=== PATIENT | female | born 1950 | race Caucasian/White ===

== ENCOUNTER → 2016-09-21 | Outpatient (CLI) | payer OTHER | LOC: FCPNEURO 21:30 | PROVIDERS: ATTEND Psychiatry & Neurology Sleep Medicine | DX: G47.33 Obstructive sleep apnea (adult) (pediatric) (principal) ==

== ENCOUNTER 2017-03-04 11:31 | Inpatient (IN) | payer OTHER ==
[2017-03-04] MEDS ORDERED: NS 1,000 ML IV ONE ×3 (11:42→13:49)
--- NOTE | 2017-03-04 11:42 | CPEKG ---
Heart Rate: 115 RR Interval: 522 P-R Interval: 160 QRSD Interval: 82 QT Interval: 348 QTC Interval: 482 P [place]: 52 QRS [place]: 15 T Wave [place]: -58 EKG Severity - ABNORMAL ECG - EKG Impression: SINUS TACHYCARDIA EKG Impression: ABNRM R PROG, CONSIDER ASMI OR LEAD PLACEMENT EKG Impression: BORDERLINE T ABNORMALITIES, INFERIOR LEADS Electronically Signed By: Jareth Alfred 04-Mar-2017 14:53:17
[2017-03-04 11:57] LABS: % IMMATURE GRANULYOCYTES 0.3 % (0.0-1.1); ABSOLUTE IMMATURE GRANULOCYTES 0.03 10^3/uL (0.00-0.10); ADD DIFF? NO; ADD MORPH? NO; ADD SCAN? NO; ATYPICAL LYMPHOCYTE FLAG 70 (0-99); FRAGMENT RBC FLAG 0 (0-99); HEMATOCRIT 51.4 % (38.0-47.0); HEMOGLOBIN 18.3 g/dL (12.6-16.3); LEFT SHIFT FLG 0 (0-99); LIPEMIA HEMOLYSIS FLAG 90 (0-99); MEAN CELL HEMOGLOBIN 30.9 pg (27.9-34.1); MEAN CELL HEMOGLOBIN CONCENTR. 35.6 g/dL (32.4-36.7); MEAN CELL VOLUME 86.8 fL (81.5-99.8); MEAN PLATELET VOLUME 10.5 fL (8.7-11.7); PLATELET CLUMPS FLAG 0 (0-99); PLATELET COUNT 252 10^3/uL (150-400); RED BLOOD CELL COUNT 5.92 10^6/uL (4.18-5.33); RED CELL DISTRIBUTION WIDTH 12.7 % (11.5-15.2)
--- NOTE | 2017-03-04 12:08 | EDPHY ---
H & P Stated Complaint: sob that started today, 4 days tx for pneumonia, denies pain Time Seen by Provider: 03/04/17 11:33 HPI/ROS: This patient presents with dyspnea. She explains that she has been fatigued recently and happened to have wellness check with her primary care physician- Dr. Leann Long 5 days ago, presenting with a low-grade fever at that time and found to have pneumonia in the right lower lung field clinically. The patient declined a chest x-ray at that time and she was started on Levaquin which she has been compliant with over the past 5 days. She reports decreased appetite and decreased p. o. intake as a result of that but her fever has resolved. This morning she has significant dyspnea and anxiety. She also complains of significant fatigue and lightheadedness. She is accompanied by her spouse who brought her in by private vehicle. ROS: Constitutional: Fatigue as noted above. No fevers over the past few days. HEENT: No URI symptoms or other complaints. Pulmonary: Dyspnea as above. She denies any pleuritic pain. No hemoptysis. Cardiovascular: She denies lightheadedness. She has not noticed palpitations. No chest pain. She has no leg swelling or pain. GI: No abdominal pain. No vomiting. She has had loose stools recently. : The 1st day of taking Levaquin-8 3 she noticed some burning dysuria that resolved thereafter. No dysuria, frequency or urgency. Integumentary: No skin rash Neuro: No focal numbness tingling or weakness. No headache. Complete review of symptoms is otherwise negative Source: Patient Exam Limitations: No limitations - Medical/Surgical History PMH: Patient had a as cardiac stress test that was negative with Dr. Rodriguez 7 years ago Hx Asthma: No Hx Chronic Respiratory Disease: No Hx Diabetes: No Hx Cardiac Disease: Yes Hx Renal Disease: No Hx Cirrhosis: No Hx Alcoholism: No Hx HIV/AIDS: No Hx Splenectomy or Spleen Trauma: No Other PMH: hypothyroid, HTN - Family History Significant Family History: No pertinent family hx, Heart disease (Father with an VA at age 55) - Social History Smoking Status: Never smoked Alcohol Use: Rarely Drug Use: None - Physical Exam Exam: General Appearance: Alert, no distress. Eyes: Pupils equal and round no pallor or injection. ENT, Mouth: Mucous membranes moist. Respiratory: There are no retractions, lungs are clear to auscultation. Patient has clear tachypnea. No rales are appreciated at this time. Cardiovascular: Tachycardia with no murmur gallop or rub. No calf swelling or tenderness. Gastrointestinal: Abdomen is soft and nontender, no masses, bowel sounds normal. Neurological: GCS 15 with no focal deficits. Skin: Warm and dry, no rashes. Musculoskeletal: Neck is supple nontender. Extremities are symmetrical, full range of motion. Psychiatric: Mood affect are notable for anxiety. Otherwise normal DIFFERENTIAL DIAGNOSIS: After history and physical exam differential diagnosis was considered for dehydration, anxiety, ongoing pneumonia, sepsis, PE, VA infectious diarrhea Constitutional: Initial Vital Signs Temperature (C) 36.7 C 03/04/17 11:36 Heart Rate 135 H 03/04/17 11:36 Respiratory Rate 26 H 03/04/17 11:36 Blood Pressure 103/68 03/04/17 11:36 O2 Sat (%) 99 03/04/17 11:36 O2 Delivery Mode Room Air Allergies/Adverse Reactions: Opioids - Morphine Analogues Allergy (Intermediate, Verified 03/05/17 10:10) Vomiting Home Medications: Medication Instructions Recorded LEVOTHYROXINE SODIUM [Synthroid] 75 mcg PO DAILY 04/07/11 Alendronate Sodium [Fosamax 70 MG 70 mg PO Q7D 03/04/17 (*)] Cetirizine HCl/Pseudoephedrine 1 each PO HS PRN 03/04/17 [Zyrtec-D Tablet] Diclofenac Sodium 1% [Voltaren Gel 1 nuria TP DAILY PRN 03/04/17 (*)] Ibuprofen/Diphenhydramine Cit 1 tab PO HS PRN 03/04/17 [Advil Pm Caplet] Lisinopril/Hydrochlorothiazide 1 each PO DAILY 03/04/17 [Zestoretic 20-25 mg Tablet] Pantoprazole Sodium [Protonix 40mg 40 mg PO DAILY 03/04/17 (*)] levOFLOXACIN [Levofloxacin] 500 mg PO DAILY 03/04/17 Medical Decision Making - Diagnostics EKG Interpretation: 12 lead EKG indication shortness of breath rule out coronary syndrome Performed at 11:40 a.m. sinus tachycardia 115 Intervals: P R of 160, QTC of 42, QTC of 348, QRS of 82 [place]: P of 52, QRS of 15, T of-[address] elevation overall assessment sinus tachycardia borderline T- wave abnormality inferiorly appears consistent with artifact by my interpretation. Repeat EKG performed at 2:58 p.m. indication rule out interval change from 1st EKG Sinus rhythm at 79 Intervals: Normal throughout the exception of the QTc of 482 [place]: Normal ST segments: Flat Ts anteriorly although probably not remarkably different from initial EKG by my interpretation-no significant interval change Overall assessment sinus rhythm borderline T-wave abnormalities ED Course/Re-evaluation: IV normal saline bolus, blood cultures, lactate and other lab sent I reviewed the patient's visit with Dr. Leann Long on 02/28/[address] with temperature at that time of 37.5 (other V.S. normal) and rales at the right base on exam, started on Levaquin 500 mg a day for clinical diagnosis of community-acquired pneumonia. This patient has a positive lactate and renal insufficiency and workup as well as leukocytosis. 2 L normal saline bolus still with positive orthostatic changes with increase in her pulse of more than 20 when she stands up and agree center applied pressure of 15 points to systolic of low 90s when she stands up. 3rd L saline started I spoke with Dr. Abraham-hospitalist for plan of admission for further workup and treatment. Discussion: Patient clinical diagnosis of pneumonia and may have radiographic clearance but it is unusual that she be worsening with no radiographic findings of pneumonia. She has at this point SIRS (initial RR >20, pulse >90) along with renal insufficiency with out of clear etiology for her symptoms. She does have loose stools but that started after the Levaquin I suspect a simple antibiotic related diarrhea. She was unable to provide a stool sample while here. Her urine is clean. The differential diagnosis includes PE but with a negative D-dimer, lack of risk factors and lack of clinical findings I do not think that she has a PE. A review of her repeat EKG reveals poor R-wave progression anteriorly and borderline flat T-waves inferiorly anteriorly. I do not think she is having active ischemia, but the differential diagnosis does include potential cardiac cause of symptoms She is treated with aspirin 324. Counseled her regarding this. At 3:00 p.m. bed is pending at [facility]. Patient feels improved while supine but still feels lightheaded while standing. She is on her 3rd L normal saline I counseled the patient regarding the reasons for admission-SIRS with unclear source of infection, renal insufficiency, dehydration - Data Points Laboratory Results: Laboratory Results 03/04/17 11:45 03/04/17 14:00 Medications Given: Acetaminophen (Tylenol) 650 mg PO Q4HRS PRN PRN Reason: Pain, Mild/Fever, Can Take PO Stop: 08/31/17 16:55 Last Admin: 03/05/17 08:56 Dose: 650 mg Benzonatate (Tessalon Pearles) 200 mg PO TID PRN PRN Reason: Cough, Mild Stop: 08/31/17 16:58 Last Admin: 03/05/17 06:22 Dose: 200 mg Cetirizine HCl (Zyrtec) 10 mg PO DAILY MERRILL Stop: 09/01/17 09:59 Last Admin: 03/05/17 10:53 Dose: 10 mg Enoxaparin Sodium (Lovenox) 40 mg SC DAILY MERRILL Stop: 09/01/17 08:59 Last Admin: 03/05/17 08:30 Dose: 40 mg Guaifenesin (Mucinex) 1,200 mg PO BID MERRILL Stop: 09/01/17 09:59 Last Admin: 03/05/17 10:52 Dose: 1,200 mg Sodium Chloride (Ns) 1,000 mls @ 150 mls/hr IV CONT MERRILL Stop: 09/01/17 09:59 Last Admin: 03/05/17 10:52 Dose: 1,000 mls Discontinued Medications Aspirin (Aspirin) 324 mg PO EDNOW ONE Stop: 03/04/17 15:08 Last Admin: 03/04/17 15:13 Dose: 324 mg Sodium Chloride (Ns) 1,000 mls @ 0 mls/hr IV ONCE ONE; Wide Open PRN Reason: Protocol Stop: 03/04/17 11:43 Last Admin: 03/04/17 11:45 Dose: 1,000 mls Ceftriaxone Sodium 1 gm/ (Sodium Chloride) 100 mls @ 200 mls/hr IV EDNOW ONE PRN Reason: Protocol Stop: 03/04/17 12:44 Last Admin: 03/04/17 12:31 Dose: 100 mls Sodium Chloride (Ns) 1,000 mls @ 0 mls/hr IV EDNOW ONE; Wide Open PRN Reason: Protocol Stop: 03/04/17 12:25 Last Admin: 03/04/17 12:32 Dose: 1,000 mls Sodium Chloride (Ns) 1,000 mls @ 0 mls/hr IV EDNOW ONE; Wide Open PRN Reason: Protocol Stop: 03/04/17 13:50 Last Admin: 03/04/17 14:02 Dose: 1,000 mls Sodium Chloride (Ns) 1,000 mls @ 150 mls/hr IV CONT MERRILL Stop: 08/31/17 16:59 Last Admin: 03/04/17 17:31 Dose: 1,000 mls Departure - Departure Disposition: [facility] Inpatient Acute Clinical Impression: SIRS (systemic inflammatory response syndrome), Renal insufficiency, Dehydration Condition: Fair
[2017-03-04 12:11] LABS: ANION GAP 17 mEq/L (8-16); CALCIUM 9.7 mg/dL (8.5-10.4); CARBON DIOXIDE 20 mEq/l (22-31); CHLORIDE 101 mEq/L (97-110); CREATININE 1.6 mg/dL (0.6-1.0); GLOMERULAR FILTRATION RATE 32; GLUCOSE 85 mg/dL (70-100); POTASSIUM 3.6 mEq/L (3.5-5.2); SODIUM 138 mEq/L (134-144)
[2017-03-04 12:24] LABS: TROPONIN I < 0.012 ng/mL (0-0.034)
[2017-03-04 12:35] LABS: COLOR YELLOW; LEUKOCYTE ESTERASE,URINE NEGATIVE (NEGATIVE); NITRITE,URINE NEGATIVE (NEGATIVE)
[2017-03-04 14:25] LABS: CREATININE 1.4 mg/dL (0.6-1.0); POTASSIUM 3.8 mEq/L (3.5-5.2)
--- NOTE | 2017-03-04 14:59 | CPEKG ---
Heart Rate: 79 RR Interval: 759 P-R Interval: 200 QRSD Interval: 90 QT Interval: 440 QTC Interval: 505 P [place]: 20 QRS [place]: -5 T Wave [place]: 7 EKG Severity - ABNORMAL ECG - EKG Impression: SINUS RHYTHM EKG Impression: BORDERLINE R WAVE PROGRESSION, ANTERIOR LEADS EKG Impression: BORDERLINE T ABNORMALITIES, ANTERIOR LEADS EKG Impression: BORDERLINE PROLONGED QT INTERVAL Electronically Signed By: Whitney Joshua 05-Mar-2017 13:15:46
[2017-03-04] MEDS ORDERED: ASPIRIN 81 MG CHEWABLE TAB PO ONE (15:07)
[2017-03-04] MEDS ORDERED: ONDANSETRON DISINTEGRATING 4 MG TAB PO PRN (16:56)
[2017-03-04] MEDS ORDERED: ONDANSETRON 4 MG/2 ML VIAL IVP PRN (16:56)
[2017-03-04] MEDS ORDERED: NS 1,000 ML IV SCH (17:00)
--- NOTE | 2017-03-04 17:03 | PDGENHP ---
History and Physical History and Physical: CC: Fever cough weakness short of breath HISTORY: This patient initially had onset of fever symptoms with myalgias 8 days ago. The symptoms persisted and she developed a cough. She saw her primary care physician around for 5 days ago and was noted to have some rales on lung exam. She was started at that time on Levaquin continues taking Levaquin at this time. The patient incentive getting better has felt worse with persistent cough , fever symptoms, and has become short of breath and feels very weak. For these reasons she presented to the urgent care today is transferred here now for further evaluation and care. She was started on Rocephin in the urgent care today. The patient also does note that starting last night she has had some left lower quadrant abdominal pain without nausea vomiting or change in bowel function. She has had screening colonoscopies but it is unaware of whether not she has diverticulosis noted. Last colonoscopy 2 years ago. She denies any recent travel, and denies any pleuritic pain or other chest pains, any leg swelling or pain. ROS: A comprehensive 10 system review revealed no other significant findings PAST MEDICAL HISTORY: Breast cancer 11 years ago on the right with lumpectomy radiation and chemotherapy and no recurrence Ovarian cancer 34 years ago treated with surgical resection, no other treatments , no recurrence Melanoma Hypertension FAMILY MEDICAL HISTORY: No family history of pulmonary diseases or immune diseases SOCIAL HISTORY: She feels under great stress at this time issues trying to move her mother into an assisted living and is not feeling well enough to get her moved in MEDICATIONS: The patients list has been reconciled by our clinical pharmacist in the EMR. I have reviewed the list and ordered appropriate medicines. PHYSICAL EXAMINATION: Vital Signs: Initially in the urgent care today she was hypotensive and tachycardic with blood pressure in the 130s and systolic blood pressures reported to me as in the 90s at times. Her vital signs did improve with fluid but she remains tachycardic at a pulse of 106 at this time with normal blood pressure. Her respiratory rate has been high but her temperature so far normal today Permanent Mold Supervisor: Was reported to me is sinus at the urgent care Examination: General: alert, oriented, good mentation, mildly anxious Skin: warm, dry, good color, no rash HEENT: normal Neck: no mass or jvd Resps: Rapid and mildly labored on oxygen Lungs: clear breath sounds without any rales or wheeze or rhonchi Heart: regular, no murmur Abdomen: soft, some left lower quadrant tenderness with no rebound or guarding or palpable abnormality and no hernia, nontender, +BS, no mass Upper Extremities: normal Lower Extremities: no edema, warm No Bleeding or bruising Neurologic: normal speech/language, normal tripper, no focal weakness IV site: looks normal LABORATORY DATA: White cell count is elevated at 10,000 and hemoglobin elevated at 18 Lactic acid 3.4 from a venous draw, accompanied with a slightly low CO2 at 20 and anion gap at 17 Her BUN and creatinine are elevated with creatinine at 1.6 which is new for her RADIOLOGY STUDIES: Chest x-rays done at the other facility and I reviewed the images, my interpretation: Normal chest x-ray with no evidence of infiltrate, effusion, heart failure or vascular abnormalities 12 LEAD EKG: My reading of the tracing is a normal 12 lead EKG ASSESSMENT: -SUSPECT SEVERE SEPSIS WITH ORGAN FAILURE -COUGH SHORTNESS OF BREATH AND FEVER BUT NORMAL LUNG EXAM AND CHEST X-RAY, UNCERTAIN ETIOLOGY -LEFT LOWER QUADRANT PAIN, QUESTION IF SHE MIGHT ALSO HAVE SOME DIVERTICULITIS -ACUTE RENAL FAILURE DUE TO ABOVE Is unclear whether her respiratory illness is a viral illness that is not getting better with antibiotic for that reason, or whether she might even have pulmonary embolus. At this point will need a chest CT to further assess what is going on there, along with a respiratory viral pathogen panel and a procalcitonin. If we do not find anything definitive going on with the respiratory system or if her abdominal symptoms are getting worse or her exam worse she will need abdominal CT as well. PLANS: -at a inpatient admission hospital -the cultures have been obtained at the urgent care -will get a CT scan of chest -continue fluid resuscitation at this time -procalcitonin, respiratory pathogen panel -will decide on whether to get a CT abdomen after obtaining results of the above studies I have reviewed the patient's case in detail with Dr. Jareth Alfred
[2017-03-04] MEDS ORDERED: IOPAMIDOL (ISOVUE 370) 100 ML BTL IV ONE (17:04)
[2017-03-05 05:05] LABS: % IMMATURE GRANULYOCYTES 0.3 % (0.0-1.1); ABSOLUTE IMMATURE GRANULOCYTES 0.02 10^3/uL (0.00-0.10); ADD DIFF? NO; ADD MORPH? NO; ADD SCAN? NO; ATYPICAL LYMPHOCYTE FLAG 60 (0-99); FRAGMENT RBC FLAG 0 (0-99); HEMATOCRIT 43.4 % (38.0-47.0); HEMOGLOBIN 14.9 g/dL (12.6-16.3); LEFT SHIFT FLG 0 (0-99); LIPEMIA HEMOLYSIS FLAG 90 (0-99); MEAN CELL HEMOGLOBIN 31.5 pg (27.9-34.1); MEAN CELL HEMOGLOBIN CONCENTR. 34.3 g/dL (32.4-36.7); MEAN CELL VOLUME 91.8 fL (81.5-99.8); MEAN PLATELET VOLUME 10.6 fL (8.7-11.7); PLATELET CLUMPS FLAG 0 (0-99); PLATELET COUNT 179 10^3/uL (150-400); RED BLOOD CELL COUNT 4.73 10^6/uL (4.18-5.33); RED CELL DISTRIBUTION WIDTH 12.8 % (11.5-15.2)
[2017-03-05 05:28] LABS: ALANINE AMINOTRANSFERASE 28 IU/L (9-52); ALBUMIN 2.6 g/dL (3.5-5.0); ALKALINE PHOSPHATASE 54 IU/L (38-126); ANION GAP 8 mEq/L (8-16); ASPARTATE AMINOTRANSFERASE 18 IU/L (14-46); BILIRUBIN,TOTAL 0.8 mg/dL (0.1-1.4); CALCIUM 7.9 mg/dL (8.5-10.4); CARBON DIOXIDE 19 mEq/l (22-31); CHLORIDE 112 mEq/L (97-110); CREATININE 1.1 mg/dL (0.6-1.0); GLOMERULAR FILTRATION RATE 49; GLUCOSE 82 mg/dL (70-100); POTASSIUM 3.9 mEq/L (3.5-5.2); SODIUM 139 mEq/L (134-144); TOTAL PROTEIN 5.2 g/dL (6.3-8.2)
[2017-03-05] MEDS: BENZONATATE 100 MG CAP PO PRN ×3 (06:22→21:37)
[2017-03-05] MEDS: ENOXAPARIN 40 MG/0.4 ML SYR SC SCH (08:30)
[2017-03-05] MEDS: ACETAMINOPHEN 325 MG TAB PO PRN ×2 (08:56→19:22)
[2017-03-05] MEDS ORDERED: guaiFENesin/CODEINE PHOS 10 ML UDCUP PO PRN (09:48)
[2017-03-05] MEDS ORDERED: FLUTICASONE NASAL 120 SPRAYS/16 GM MDI EACHNARE PRN (09:49)
[2017-03-05] MEDS ORDERED: NS 1,000 ML IV SCH (10:00)
[2017-03-05] MEDS: guaiFENesin 600 MG TAB.ER PO SCH ×2 (10:52→19:22)
[2017-03-05] MEDS: CETIRIZINE 10 MG TAB PO SCH (10:53)
[2017-03-05] MEDS ORDERED: CETIRIZINE HCL PO PRN ×2 (14:41→14:55)
[2017-03-05] MEDS ORDERED: PSEUDOEPHEDRINE PO PRN ×2 (14:41→14:55)
[2017-03-05] MEDS ORDERED: DICLOFENAC SODIUM 1% 100 GM GEL TP PRN ×2 (14:41→14:54)
[2017-03-05] MEDS ORDERED: IBUPROFEN PO PRN ×2 (14:41→14:55)
[2017-03-05] MEDS ORDERED: DIPHENHYDRAMINE CIT PO PRN ×2 (14:41→14:55)
--- NOTE | 2017-03-05 14:48 | HOSPPROG ---
Hospitalist Progress Note Assessment/Plan: assessment: 66-year-old female presents with severe sepsis in the setting of parainfluenza virus Plan: 1. Severe sepsis. present on admission, evidenced by end-organ failure in the setting of viral infection, including acute kidney injury and lactic acidosis, meeting all ICDS-2 criteria -CT angiogram demonstrates no evidence of pulmonary embolism, no evidence of pneumonia -EKG demonstrates normal sinus mechanism with Q-wave in lead 3 and AVF, no chest pain, personally interpreted -continue on IV fluids -continue monitoring CBC 2. Parainfluenza infection. Positive on respiratory viral panel, resulting in her multi-system symptoms -supportive care with IV fluids, antihistamine, mucolytic, pain medications, antiemetics -patient's abdominal discomfort is most likely secondary to bowel irritation from her systemic virus, but if she is manifesting worsening or clinical change , will get abdominal CT scan -counseled patient regarding potential for spread, particularly to her 91-year- old mother 3. acute kidney injury. Secondary to autonomic dysregulation in the setting of infection, as well as hypovolemia, continue IV fluids, continue monitor urine output and monitor serum creatinine level -positive orthostatics, patient currently asymptomatic, repeat if patient manifesting symptoms 4. Metabolic acidosis. Acute, secondary to lactic acid, secondary to severe sepsis, continue IV fluids 5. hypothyroidism. Continue Synthroid, TSH somewhat under suppressed, will discuss with patient 6. diarrhea. Acute, new problem this provider, further workup is indicated. Potentially antibiotic associated diarrhea, as the patient has been on 5 days of Levaquin and also received ceftriaxone in the emergency department, currently off all antibiotics -given her risk for C diff, send PCR -monitor stool output Diet. Regular diet as tolerates Prophylaxis. High risk patient, Lovenox 40 Code. Full Disposition. Anticipated discharge is 03/06/2017, pending clinical improvement in condition as outlined above. Subjective: Patient reports she has significant sinus congestion, no lightheadedness upon standing, cough continues to be particularly troublesome, having diarrhea today Objective: Vital Signs Temp Pulse Resp BP Pulse Ox 36.7 C 98 20 129/66 H 96 03/05/17 11:20 03/05/17 11:20 03/05/17 11:20 03/05/17 11:20 03/05/17 11:20 Microbiology 03/04/17 17:33 Respiratory Panel (PCR) - Final Nasal, Sinus - Anaerobic Tube/Swab Parainfluenza Virus Type 1 Laboratory Results 03/05/17 04:22 03/05/17 04:22 03/04/17 03/05/17 03/06/17 05:59 05:59 05:59 Intake Total 740 Balance 740 - Pending Discharge Pending Discharge Within 24 Hours: Yes Pending Discharge Date: 03/06/17 Pending Discharge Time: 11:00 - Physical Exam Constitutional: no apparent distress, not in pain, uncomfortable, other ( ill- appearing) Cardiovascular: tachycardia, No systolic murmur, No irregularly irregular, No edema Respiratory: no rales or rhonchi, clear to auscultation, other ( cough triggered by deep inspiration), No expiratory wheeze Gastrointestinal: normoactive bowel sounds, no palpable masses, tenderness ( focal in the left suprapubic area), No distension Skin: no rashes or abrasions, no fluctuance, no induration Neurologic: AAOx3, sensation intact bilaterally Psychiatric: interacting appropriately, not anxious, not encephalopathic, thought process linear ICD10 Worksheet Patient Problems: Problems Problem Status Onset SIRS (systemic inflammatory response syndrome) Acute Renal insufficiency Acute Dehydration Acute
[2017-03-05] MEDS ORDERED: LOPERAMIDE HCL 2 MG CAP PO PRN (18:29)
[2017-03-06] MEDS: BENZONATATE 100 MG CAP PO PRN ×2 (03:17→11:07)
[2017-03-06 04:51] LABS: % IMMATURE GRANULYOCYTES 0.2 % (0.0-1.1); ABSOLUTE IMMATURE GRANULOCYTES 0.01 10^3/uL (0.00-0.10); ADD DIFF? NO; ADD MORPH? NO; ADD SCAN? NO; ATYPICAL LYMPHOCYTE FLAG 20 (0-99); FRAGMENT RBC FLAG 0 (0-99); HEMATOCRIT 41.9 % (38.0-47.0); HEMOGLOBIN 14.3 g/dL (12.6-16.3); LEFT SHIFT FLG 0 (0-99); LIPEMIA HEMOLYSIS FLAG 90 (0-99); MEAN CELL HEMOGLOBIN 31.1 pg (27.9-34.1); MEAN CELL HEMOGLOBIN CONCENTR. 34.1 g/dL (32.4-36.7); MEAN CELL VOLUME 91.1 fL (81.5-99.8); MEAN PLATELET VOLUME 10.4 fL (8.7-11.7); PLATELET CLUMPS FLAG 0 (0-99); PLATELET COUNT 188 10^3/uL (150-400); RED CELL DISTRIBUTION WIDTH 12.9 % (11.5-15.2)
[2017-03-06 05:03] LABS: ALANINE AMINOTRANSFERASE 28 IU/L (9-52); ALBUMIN 3.1 g/dL (3.5-5.0); ALKALINE PHOSPHATASE 59 IU/L (38-126); ANION GAP 8 mEq/L (8-16); ASPARTATE AMINOTRANSFERASE 22 IU/L (14-46); BILIRUBIN,TOTAL 0.7 mg/dL (0.1-1.4); CALCIUM 8.4 mg/dL (8.5-10.4); CARBON DIOXIDE 21 mEq/l (22-31); CHLORIDE 112 mEq/L (97-110); CREATININE 0.8 mg/dL (0.6-1.0); GLOMERULAR FILTRATION RATE > 60; GLUCOSE 80 mg/dL (70-100); POTASSIUM 3.9 mEq/L (3.5-5.2); SODIUM 141 mEq/L (134-144); TOTAL PROTEIN 5.6 g/dL (6.3-8.2)
[2017-03-06 07:43] VITALS: BP 151/93; RESP 16; TEMP 98.3
[2017-03-06] MEDS: ENOXAPARIN 40 MG/0.4 ML SYR SC SCH (07:58)
[2017-03-06] MEDS: CETIRIZINE 10 MG TAB PO SCH (07:58)
[2017-03-06] MEDS: guaiFENesin 600 MG TAB.ER PO SCH (07:59)
[2017-03-06 08:39] VITALS: PULSE 104; O2SAT 96
[2017-03-06] MEDS ORDERED: LEVOTHYROXINE 75 MCG TAB PO SCH (09:00)
[2017-03-06] MEDS ORDERED: PANTOPRAZOLE SODIUM 40 MG TAB PO SCH (09:00)
--- NOTE | 2017-03-06 10:39 | PDDCSUM ---
Discharge Summary Discharge Summary: DISCHARGE SUMMARY FOLLOW-UP ITEMS: Follow up with primary care provider next week DATE OF ADMISSION: 03/04/2017 DATE OF DISCHARGE: 03/06/2017 DISCHARGE DIAGNOSES: 1. Severe sepsis present on admission 2. Parainfluenza infection 3. Acute kidney injury 4. Acute metabolic acidosis 5. Chronic hypothyroidism 6. Suspected atelectasis CONSULTATIONS: None PROCEDURES / IMAGING: Chest x-ray demonstrating no focal pneumonia, CT angiograms demonstrating no pulmonary embolism CHIEF COMPLAINT: Acute cough, myalgias, weakness, abdominal pain SUBJECTIVE: Patient is feeling well at time discharge, her cough has been well controlled with Tessalon Perles, abdominal pain has improved PHYSICAL EXAM ON DISCHARGE: Systolic blood pressure is 130, heart rate 80, afebrile overnight, satting well on room air, lungs are clear to auscultation bilaterally with some inspiratory crackles in the bases which clear with cough, no lower extremity edema, heart rate and rhythm are regular LABS ON DISCHARGE: Creatinine 0.8, potassium 3.9, white blood cell count 6100, hemoglobin 14.3 HOSPITAL COURSE BY PROBLEM: 1. Severe sepsis. Present on admission, evidenced by autonomic dysregulation in the setting of a viral infection, resulting in end-organ failure, notably acute kidney injury and lactic acidosis, meeting all ICDS-2 criteria for sepsis. She received empiric IV fluids, empiric IV antibiotics, and then the viral source of infection was identified. Her leukocytosis improved and down trended and her hemodynamics have been stable at time of discharge. 2. Parainfluenza infection. Patient's constellation of symptoms is most likely secondary to parainfluenza infection, as noted on respiratory viral panel. She did not demonstrate any evidence of bacterial superinfection pneumonia. Antibiotics were discontinued. She received aggressive supportive care with IV fluids, symptomatic support. She will be discharged home with numerous symptomatic medications. It should be noted that the patient's has begun demonstrating similar symptoms and he will be evaluated by his primary care provider today. I recommended that the patient and her continue using respiratory masks at home to prevent contamination with Respiratory particles, and the patient wash her CPAP device. 3. Acute kidney injury. Secondary to autonomic dysregulation in the setting of infection, resulting in hypovolemia, patient's serum creatinine level improved with IV fluids. 4. Acute metabolic acidosis. Secondary to lactic acid in the setting of severe sepsis. This improved with IV fluids. 5. Chronic hypothyroidism. Patient's TSH is somewhat under suppressed, she does not presently report any symptoms but is somewhat difficult to define given her recent viral infection, recommend that she follow up for this issue with her primary care provider. She will continue on her present home dosage. 6. Suspected atelectasis. I suspect the patient's atelectasis in her bilateral bases in the setting of cough is was interpreted as focal airspace disease with the patient originally sought medical attention at her PCPs office. We have evaluated further with chest x-ray and chest CT imaging, which demonstrates no focal pneumonia process. Consequently, we recommend supportive management of her cough as well as incentive spirometer. DISCHARGE MEDICATIONS: Please see official discharge medication reconciliation sheet in chart , Mucinex twice daily, guaifenesin and codeine as needed, Tessalon Perles as needed, Zyrtec daily, ibuprofen and Tylenol as needed, Imodium as needed. DISCHARGE INSTRUCTIONS: Please follow up with primary care provider next week. TIME SPENT: Greater than 30 minutes were spent on direct patient care, as well as discharge planning and preparation.
[2017-03-06] MEDS: ACETAMINOPHEN 325 MG TAB PO PRN (11:07)
== END 2017-03-06 11:50 | disposition home or self-care (01) | DRG 872 ==
LOC: CED 11:31 → F3E 16:14 → OBSVTOIN 16:56
PROVIDERS: ADMIT Internal Medicine; ATTEND Internal Medicine
DX: A41.9 Sepsis, unspecified organism (principal); R65.20 Severe sepsis without septic shock; B34.8 Other viral infections of unspecified site; N17.9 Acute kidney failure, unspecified; E87.2 Acidosis; R19.7 Diarrhea, unspecified; J98.11 Atelectasis; R10.32 Left lower quadrant pain; E03.9 Hypothyroidism, unspecified; I10 Essential (primary) hypertension; Z85.3 Personal history of malignant neoplasm of breast; Z92.3 Personal history of irradiation; Z87.01 Personal history of pneumonia (recurrent); Z85.43 Personal history of malignant neoplasm of ovary; Z85.820 Personal history of malignant melanoma of skin
CPT/HCPCS: 71020-PO; 80048-PO; 81003-PO; 83605-PO; 84439-PO; 84443-PO; 84481-PO; 84484-PO; 85025-PO; 85378-PO; 96365; 97161-GP; J0696; J1650; Q9967

== ENCOUNTER → 2017-04-04 | Outpatient (CLI) | payer OTHER | LOC: FIMAGING 10:49 | PROVIDERS: ATTEND Internal Medicine Hematology & Oncology | DX: Z12.31 Encounter for screening mammogram for malignant neoplasm of breast (principal); Z85.3 Personal history of malignant neoplasm of breast | CPT/HCPCS: G0202 ==

== ENCOUNTER → 2017-05-22 | Outpatient (CLI) | payer OTHER | LOC: CIMAGING 10:30 | PROVIDERS: ATTEND Family Medicine | DX: R05 Cough (principal); R06.02 Shortness of breath | CPT/HCPCS: 71020-PO ==

== ENCOUNTER → 2017-07-05 | Outpatient (CLI) | payer OTHER | LOC: BHFA 14:45 | PROVIDERS: ATTEND Internal Medicine Cardiovascular Disease | DX: R06.02 Shortness of breath (principal); R53.83 Other fatigue ==

== ENCOUNTER → 2017-12-19 | Outpatient (CLI) | payer OTHER | LOC: FIMAGING 09:42 | PROVIDERS: ATTEND Internal Medicine Endocrinology, Diabetes & Metabolism | DX: Z13.820 Encounter for screening for osteoporosis (principal); M85.89 Other specified disorders of bone density and structure, multiple sites ==

== ENCOUNTER → 2018-04-07 | Outpatient (CLI) | payer OTHER | LOC: FIMAGING 08:37 | PROVIDERS: ATTEND Internal Medicine Hematology & Oncology | DX: Z12.31 Encounter for screening mammogram for malignant neoplasm of breast (principal); Z85.3 Personal history of malignant neoplasm of breast ==